=== PATIENT | female | born 1960 | race Caucasian/White ===

== ENCOUNTER 2017-01-13 16:08 | Emergency (ER) | payer OTHER ==
[~2017-01-13] VITALS: Ht 157.5 cm; Wt 51.4 kg
[~2017-01-13 16:08] MED LIST: LEVO25TA9 PO; SERT50TA12 PO; ZOLP10TA6 PO
[2017-01-13] MEDS ORDERED: IBUPROFEN 800 MG TABLET PO ONE (19:00)
[2017-01-13 21:38] VITALS: BP 119/61
== END 2017-01-13 21:52 | disposition home or self-care (01) ==
LOC: EMS 16:10
DX: S52.501A Unspecified fracture of the lower end of right radius, initial encounter for closed fracture (principal); S52.601A Unspecified fracture of lower end of right ulna, initial encounter for closed fracture; W01.0XXA Fall on same level from slipping, tripping and stumbling without subsequent striking against object, initial encounter; Y93.89 Activity, other specified; Y92.89 Other specified places as the place of occurrence of the external cause; Y99.8 Other external cause status
CPT/HCPCS: 99284